=== PATIENT | female | born 1965 | race Caucasian/White ===

== ENCOUNTER → 2017-03-15 | Outpatient (CLI) | payer BC, OTHER ==
[~2017-03-15] VITALS: Ht 27.9 cm; Wt 52.2 kg
[~2017-03-15] MED LIST: AMBIEN 5 MG TABL5 M1 PO; CALCIUM 500 +1 EAC5 PO; DICLOFENAC SODI75 MG PO; GRALISE600 MG PO; LISINOPRIL10 MG PO; OXYCODONE HCL 55 MG PO; VITAMIN D3400 UNIT PO; [UNRECOGNIZED DRUG - OTHER] PO
--- NOTE | ~2017-03-15 | HPC ---
[facility] [address] [place] [address] PAIN MANAGEMENT CONSULTATION Name: DEBRA TINOCO Room #: REG [facility].#: [id number] Admission: 03/15/17 Attend Phys: Minor Turk DO Discharge: Date of : 67 Report #: [id number] THIS REPORT FOR: //name// CC: Duc Ward DATE OF SERVICE: 03/15/2017 REFERRING PHYSICIAN: Duc Barbosa MD CHIEF COMPLAINT: Neck pain, left upper extremity pain and paresthesias. HISTORY OF PRESENT ILLNESS: As you know, the patient is a 51-year-old female with longstanding history of neck pain, left upper extremity pain, which began in May 2016. She denies injury or trauma that may have led to symptoms. She has undergone Botox injections every 3 months for almost 9 years addressing symptoms of neck discomfort. She recently underwent a bursa injection in the left shoulder, which provided no improvement in symptoms. She also has had an intraarticular shoulder injection, which she does report some improvement in symptoms. She has completed physical therapy, but noted no significant pain improvement with this process. She returned to see her orthopedic surgeon who then referred the patient to our clinic to trial cervical epidural injections to address potential cervical radicular symptoms. She indicates pain is continuous, describes the pain as cramping, aching, gnawing, sharp and stabbing, places current pain score 3/10, daily average of 4/10, worst pain has been is 7/10. The patient has been referred to our service to trial cervical epidural injection and determine if her symptoms might be amenable to such procedures. PAST MEDICAL HISTORY: 1. Hypertension. 2. History of basal cell carcinoma. 3. Degenerative joint disease. 4. Osteoarthritis. 5. Chronic insomnia. PAST SURGICAL HISTORY: 1. Bilateral carpal tunnel release in 2014. 2. Bilateral breast implants in 1997. SOCIAL HISTORY: The patient denies tobacco, IV or illicit drug use, admits to 2 alcohol beverages per week. 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 She is reporting she is on partial disability due to several years of neck pain. She is unaccompanied at today's visit. REVIEW OF SYSTEMS: Positive for fatigue and weakness, wearing corrective [facility] [address] [place] [address] PAIN MANAGEMENT CONSULTATION Name: DEBRA TINOCO [facility] [id number] Admission: 03/15/17 Attend Phys: Minor Turk DO Discharge: Date of : 67 Report #: [id number] eyewear, irregular menses, painful menses, insomnia, neck pain that is chronic in nature, left upper extremity pain with paresthesias. All other review of systems negative per 12-point review of systems other than those listed in history of present illness. PAIN IMPACT SCORE: 26/70 indicating [id number]-nt-[id number] interference of daily activities secondary to pain. ALLERGIES: SULFA, PENICILLIN, BACITRACIN, POLYMYXIN, and VICRYL SUTURES. CURRENT MEDICATIONS: Lisinopril 10 mg once a day, Gralise 600 mg once a day, oxycodone 5 mg twice a day, zolpidem 10 mg 3 times a week, and diclofenac 75 mg twice a day. IMAGING: MRI cervical spine obtained on 10/13/2016, shows C2-C3 with no significant disk bulge or protrusions identified. Mild left neural foraminal narrowing due to uncovertebral and facet arthrosis. No significant central canal neural foraminal stenosis. C3-C4, minimal posterior disk bulge, no significant central canal neural foraminal stenosis. There is mild neural foraminal stenosis on the left due to uncovertebral facet arthrosis. C4-C5, no significant disk bulge or protrusion identified. No significant central canal neural foraminal stenosis. C5-C6, small broad based posterior disk osteophyte complex, severe disk desiccation, tnmvnyaw-[id number] right and mild left neural foraminal stenosis due to uncovertebral hypertrophy and facet arthrosis. C6-C7, minimal posterior disk bulge, no significant central canal stenosis, moderate right, [id number]-[id number] left neural foraminal stenosis. PHYSICAL EXAMINATION: VITAL SIGNS: Blood pressure 145/78, pulse 83, respiratory rate 14 and unlabored, the patient is 100% on room air, height 4 feet 11 inches tall, weight 115 pounds, and BMI calculated 23.2. GENERAL: Well-developed, well-nourished, well-hydrated 51-year-old female, appearing stated age, placing current pain score at 3/10. HEENT: Normocephalic, atraumatic. Pupils are equal, round, and reactive to light. Extraocular muscles are intact. Sclerae nonicteric without injection. NEUROLOGIC: Cranial nerves 2-12 are grossly intact. Speech is fluent. The patient deemed a fair historian. LUNGS: Clear. No wheezing, rhonchi, or rales. CARDIOVASCULAR: Regular. No appreciable gallop or rub. ABDOMEN: Soft, nontender, nondistended, normoactive bowel sounds. EXTREMITIES: Show no clubbing, no cyanosis, and no edema. MUSCULOSKELETAL: Upper extremity strength appears equal and symmetrical 5/5, intact to light touch from C5 through T1 dermatomes. Spurling's test positive right, negative left. Muscle bulk and tone equal and symmetrical in upper extremities. Cervical provocation testing including extension, rotation, lateral flexion all intensify axial cervical spine pain. [facility] [address] [place] [address] PAIN MANAGEMENT CONSULTATION Name: ALEJANDRINADEBRA Keesha Room #: REG [facility].#: [id number] Admission: 03/15/17 Attend Phys: Minor Turk DO Discharge: Date of : 67 Report #: [id number] ASSESSMENT: 1. Cervical radiculopathy. 2. Displacement of a cervical intervertebral disk with radiculopathy. 3. Cervical spondylosis with radicular symptoms. PLAN: 1. The patient has been referred to our service by our orthopedic surgery for evaluation for suspected cervical radiculopathy. The patient has undergone bursal injections in the shoulder as well as an intra-articular shoulder injection without improvement in symptoms. Due to lack of improvement, she was then sent for imaging of the cervical spine. It was determined the patient's symptoms might be related to cervical radiculopathy, she was subsequently referred to our clinic to trial a cervical epidural injection. Upon evaluation today, it does appear that the symptoms that the patient is currently experiencing do follow a mild dermatomal distribution, but certainly does correlate to more of a myotomal distribution. We have discussed with the patient treatment options for cervical radicular symptoms including the reason why the patient was sent today for cervical epidural injection. We discussed physical therapy, stretching exercises and traction techniques. This could be an effective way of treating her symptoms. We discussed neuropathic pain medications specifically in the form of gabapentin. We discussed the requested cervical epidural injections and surgical options. After reviewing the risks and benefits of all the proposed treatment options, the patient chose to begin with a cervical epidural injection under fluoroscopic guidance. The patient was advised the risks and benefits of a cervical epidural injection. These risks include, but are not necessarily limited to bleeding, bruising, infection, worsening of pain, no relief of pain, also risk of temporary or permanent muscle weakness, temporary or permanent nerve damage, possible paralysis and . The patient states understood and wished to proceed. 2. No medication changes were made at today's visit. The patient will continue current medical therapy as previously prescribed. 3. We will see the patient back in followup visit in approximately 31 days. At that time, we will review the efficacy of today's initial epidural injection and determine if a next in the series of epidural injections might be warranted. 4. We wish to thank the referring team for the opportunity to see this patient in consultation. We will keep you apprised of her response to treatment as we address suspected cervical radiculopathy. Again, we wish to thank you for the opportunity to participate in her care. PROCEDURE NOTE DESCRIPTION OF PROCEDURE: C7-T1 cervical epidural steroid injection under [address] [address] PAIN MANAGEMENT CONSULTATION Name: DEBRA TINOCO Room #: REG [facility] Zaidi#: [id number] Admission: 03/15/17 Attend Phys: Minor Truk DO Discharge: Date of : 67 Report #: [id number] fluoroscopic guidance. This is the first procedure of the first series that the patient is undergoing. After obtaining written consent, the patient was taken back to the fluoroscopy suite and placed in a prone position with separate pillows under chest and forehead to decrease cervical lordosis. The skin overlying the cervical area was prepped and draped in an aseptic fashion. The C7-T1 vertebral interspace was identified by AP fluoroscopy. The skin and subcutaneous tissue overlying the target site of injection was anesthetized using 3 ml of 1% lidocaine. A 20-gauge 3-1/2-inch Tuohy needle was advanced under fluoroscopic guidance toward the epidural space using a midline approach. The epidural space was identified using a loss of resistance to air technique. After negative aspiration for heme or cerebrospinal fluid, a total of 1 mL of Omnipaque was injected. A cervical epidurogram was confirmed using AP and oblique fluoroscopy. After negative aspiration for heme or cerebrospinal fluid, 5 mL of a solution containing 2 mL 40 mg per mL, 80 mg total triamcinolone, 3 mL lidocaine 1% was injected in increments. Contrast spread was noted from posterior epidural space. The needle was then retracted approximately correction and the needle track was flushed with 1 ml of 1% lidocaine. There were no apparent new sensory deficits in the upper extremities present following the procedure. A sterile bandage was placed over the injection site. The heart rate, pulse oximetry, and blood pressure were continuously monitored after the procedure. There were no apparent complications. The patient tolerated the procedure well and was carefully escorted in the recovery room in stable condition. After meeting discharge criteria, the patient was discharged home. By: [id number] [id number] Minor Turk DO /zainab
[2017-03-15 13:11] VITALS: BP 145/78
== END ==
LOC: PAIN 07:20
DX: M50.10 Cervical disc disorder with radiculopathy, unspecified cervical region (principal); Z88.0 Allergy status to penicillin; Z88.8 Allergy status to other drugs, medicaments and biological substances; I10 Essential (primary) hypertension; M19.90 Unspecified osteoarthritis, unspecified site; G47.00 Insomnia, unspecified; Z85.9 Personal history of malignant neoplasm, unspecified

== ENCOUNTER → 2017-04-06 | Outpatient (CLI) | payer BC, OTHER ==
[~2017-04-06] VITALS: Ht 149.9 cm; Wt 51.3 kg
[~2017-04-06] MED LIST changes: +ROBAXIN 750 MG750 M1 PO
--- NOTE | ~2017-04-06 | HPC ---
[facility] [address] [place] [address] PAIN MANAGEMENT CONSULTATION Name: ALEJANDRINADEBRA K [facility] #: [facility] [id number] Admission: 04/06/17 Attend Phys: Minor Turk DO Discharge: Date of : 67 Report #: [id number] THIS REPORT FOR: //name// CC: Duc Ward DATE OF SERVICE: 04/06/2017 REFERRING PHYSICIAN: Duc Barbosa M.D. CHIEF COMPLAINT: Neck pain, left upper extremity pain and paresthesias. HISTORY OF PRESENT ILLNESS: As you know, the patient is a 51-year-old female who returns today in followup visit with 100% resolution of her left arm pain, but continues to experience just left neck pain. She places pain score at around 0-2/10. Indicates pain is constant, cramping, sharp, stabbing and gnawing, exacerbated with sitting, standing and moving, improves with rest and lying down as well as previous epidural injection. She returns today in followup visit with what appears to be myofascial symptoms secondary to myotomal distribution of cervical radiculopathy. The patient had a return visit today to discuss treatment options. ALLERGIES: SULFA, PENICILLIN, BACITRACIN, POLYMYXIN, VICRYL SUTURES. SOCIAL HISTORY: The patient denies tobacco, IV or illicit drug use. Admits to 2 alcohol beverages per week. She is currently employed as a dental hygienist, working, not receiving workmen's compensation, unaccompanied today. IMAGING: No new imaging available. PHYSICAL EXAMINATION: VITAL SIGNS: Blood pressure 136/64, pulse 78, respiratory rate 14, unlabored. The patient is 100% on room air. Height 4 feet 11 inches tall, weight 113 pounds, BMI calculated 22.8. GENERAL: Well developed, well nourished, well hydrated 51-year-old female appearing her stated age. Pain is rated no greater than 2/10. HEENT: Normocephalic, atraumatic. Pupils equal, round, reactive to light. Extraocular muscles are intact. Sclerae nonicteric without injection. NEUROLOGIC: Cranial nerves 2-12 grossly intact. Speech is fluent. LUNGS: Clear, no wheeze, rhonchi or rales. CARDIOVASCULAR: Regular. No appreciable gallop or rub. ABDOMEN: Soft, nontender, nondistended. EXTREMITIES: Show no clubbing, no cyanosis, no edema. MUSCULOSKELETAL: Upper extremity strength appears equal and symmetrical 5/5, intact to light touch from C5-T1 dermatomes. Spurling's test is positive on the [address] [address] PAIN MANAGEMENT CONSULTATION Name: DEBRA TINOCO Room #: REG [facility] MaydaTres#: [id number] Admission: 04/06/17 Attend Phys: Minor Turk DO Discharge: Date of : 67 Report #: [id number]. Cervical provocation testing causes increased pain on the left when compared to the right. ASSESSMENT: 1. Symptomatic cervical radiculopathy. 2. Cervical spondylosis with radiculopathy. 3. Displacement of cervical intervertebral disk with radiculopathy. 4. Chronic intractable pain. PLAN: 1. The patient returns today in followup visit with 100% improvement in her left upper extremity pain from the epidural injection provided at last visit. She is extremely pleased with response to this treatment. She continues to experience muscle spasming in the cervical region just on the left side. The patient has had this muscle spasming for years and has undergone multiple different types of treatment including Botox injections. I believe her symptoms are more related to cervical myotomal distribution versus cervical dermatomal distribution. We discussed with the patient the possibility of repeating a cervical epidural injection and this would be certainly an option in her case. Given the fact that she is in now only experiencing 2/10 pain, I would recommend a more conservative approach, but we will have this second cervical epidural available if the patient wishes to undergo the procedure. 2. We will start the patient on a consistent muscle relaxant in the form of Robaxin 750 mg dose 1 tab p.o. t.i.d. p.r.n. muscle spasms. I have advised the patient to watch for side effects of somnolence, decreased mental acuity, disorientation, confusion with its use. If she notes any side effects, discontinue immediately. The patient is advised not to drive or operate heavy equipment while on this therapy. If the patient is noticing benefit, but side effects that are too intolerable, she will then use half a dose 3 times a day if needed. 3. I am pleased to see the patient has done well with previous epidural injection, we will be available to see the patient back in followup visit for a possible second in series of epidural injections if needed to address cervical myotomal pain. I am pleased to see she has done well and will be available to see her back and hopefully the Robaxin provided will benefit the patient further and she will be doing well from a pain standpoint. <ELECTRONICALLY SIGNED> By: Minor Turk DO 04/13/17 0807 [id number] [id number] Minor Turk DO /nt
[2017-04-06 10:46] VITALS: BP 136/64
== END | disposition home or self-care (01) ==
LOC: PAIN 07:25
DX: M50.10 Cervical disc disorder with radiculopathy, unspecified cervical region (principal); G89.29 Other chronic pain; Z88.0 Allergy status to penicillin; Z88.8 Allergy status to other drugs, medicaments and biological substances

== ENCOUNTER → 2017-07-20 | Outpatient (CLI) | payer BC, OTHER ==
[~2017-07-20] VITALS: Ht 149.9 cm; Wt 52.1 kg
[~2017-07-20] MED LIST changes: +ALEVE220 MG PO; +ALORA1 EAC1; +DOXYCYCLINE 10100 MG PO; +KLONOPIN0.5 MG PO; +LYRICA 75 MG CA75 MG PO; +LYRICA150 MG PO; +LYRICA200 MG PO; +LYRICA225 MG PO; +PROGESTERONE100 MG PO; +ROXICODONE5 M2 PO; +TRAMADOL 50 MG50 MG PO
--- NOTE | ~2017-07-20 | HPC ---
[facility] [address] [place] [address] PAIN MANAGEMENT CONSULTATION Name: ALEJANDRINADEBRA Keesha Room #: [facility] [id number] Admission: 07/20/17 Attend Phys: Minor Turk DO Discharge: Date of : 67 Report #: [id number] THIS REPORT FOR: //name// CC: Duc Ward DATE OF SERVICE: 07/20/2017 REFERRING PHYSICIAN: Duc Barbosa M.D. CHIEF COMPLAINT: Neck pain, left upper extremity pain and paresthesias. HISTORY OF PRESENT ILLNESS: As you know, the patient is a 51-year-old female who returns today in followup visit to discuss medication adjustments and treatment options for ongoing left upper extremity pain and chronic neck pain. The patient is undergoing Botox injections in the neck, not noticing much in the way of improvement appears to be myofascial in origin. The neck issues have been addressed with epidural injections, which have improved her left upper extremity pain but has left her own with residual neck pain, which was unresolved from the injection and/or with the Botox injections. We started the patient on Lyrica in hopes of improving pain further. She returns to make some further adjustments in her therapy. Today, pain is rated at a level of 4/10, states the pain is chronic cramping, aching, sharp, stabbing, gnawing, exacerbated with sitting, standing and not moving for a long period of time, improves with rest and medications. She returns today to make adjustments in therapy. ALLERGIES: PENICILLIN, SULFA, BACTRIM and POLYMYXIN. CURRENT MEDICATIONS: Naproxen sodium 220 mg 3 times a day, methocarbamol 750 mg 3 times a day, calcium carbonate 1 tab per day, cholecalciferol 4000 units per day, zolpidem 5 mg p.o. at bedtime, oxycodone 5 mg 1/2 tab q. 12 hours p.r.n. pain, lisinopril 10 mg per day and Lyrica 150 mg dose at night. SOCIAL HISTORY: The patient denies tobacco, alcohol, IV or illicit drug use. She is working, not receiving workmen's compensation, unaccompanied today. IMAGING DATA: No new imaging available. PHYSICAL EXAMINATION: VITAL SIGNS: Blood pressure 126/75, pulse 86 and respiratory rate 16 and unlabored. The patient is 100% on room air. Height 4 feet 11 inches tall, weight 114.8 pounds and BMI calculated 23.2. GENERAL: Well-developed, well-nourished, well-hydrated 51-year-old female appearing her stated age. Current pain score is rated at 4/10. [place] [address] PAIN MANAGEMENT CONSULTATION Name: DEBRA TINOCO [facility] #: [facility] [id number] Admission: 07/20/17 Attend Phys: Minor Turk DO Discharge: Date of : 67 Report #: [id number] HEENT: Normocephalic and atraumatic. Pupils equal, round and reactive to light. Extraocular muscles are intact. Sclerae nonicteric, without injection. Speech fluent. EXTREMITIES: Show no clubbing, no cyanosis and no edema. MUSCULOSKELETAL: Upper extremity strength equal and symmetrical 5/5, muscle bulk and tone equal and symmetrical. Spurling's test mildly positive left, negative right. Intact to light touch from C5 to T1 dermatomes. Deep tendon reflexes are symmetrical at biceps, brachialis and triceps. ASSESSMENT: 1. Cervical radiculopathy. 2. Cervical spondylosis with radiculopathy. 3. Displacement of cervical intervertebral disk with radiculopathy. 4. Myofascial pain. 5. Muscle spasms of the cervical region. 6. Chronic intractable pain. PLAN: 1. The patient returns today in followup visit indicating good improvement in the left upper extremity pain with the cervical epidural injection. Unfortunately, this did not provide much in the way of improving her neck pain. I believe her neck pain is more related to myofascial issues, specifically about issues of related to her positioning at work. I think this is also exacerbated by anxiety, leading to chronically contracted musculature of the cervical region. She has been undergoing Botox injections for a very long period of time with minimal efficacy, though she does note improvement, which would indicate more of a myofascial in process. I believe the underlying problem is related more to anxiety related issues, then it is just strictly contracted musculature certainly not due to her cervical radicular symptoms as the symptoms she is experiencing are left-sided from a cervical radicular standpoint but is experiencing bilateral head pain and actually the right greater than the left. We have discussed treatment options following adjustments will be made in therapy. 2. The patient will increase her Lyrica from 150 mg at night to 150 mg at night and 50 mg a day. We have given the patient a trial of 50 mg tablets to take in the morning hours. She is to watch for side effects of somnolence, decreased mental acuity, disorientation and confusion. If she notes side effects in the morning hours, she should take the total of 200 at night in hopes of improving remaining neuropathic pain. She is having no side effects with the 150 mg tablet and escalation would be warranted. She was given the Lyrica prescription of 150 mg dose 1 tab p.o. at bedtime, #30 with two refills. She was given a month's worth of 50 mg Lyrica samples to try. If we need to make an adjustment in her therapy, she is to contact our clinic once she reaches the 150 mg in the evening and 50 mg morning dosing. 3. The patient was provided prescription of oxycodone 5 mg dose. She is to take one half tab up to 2-3 times a day. She was given #60 tablets, no refills. [address] [address] PAIN MANAGEMENT CONSULTATION Name: DEBRA TINOCO Room #: REG [facility].#: [id number] Admission: 07/20/17 Attend Phys: Minor Turk DO Discharge: Date of : 67 Report #: [id number] She was advised to utilize medication only when pain is intolerable, not to rely on the medication prophylactically. I did advise the patient is not an appropriate long-term therapy for her ongoing issues. 4. The patient will discontinue methocarbamol and any other muscle relaxants as well as her Ambien. She will trial clonazepam 0.5 mg 1 tab p.o. at bedtime. I do believe that a significant portion of the patient's chronic neck pain is due to anxiety related issues. This in conjunction with positioning at work exacerbates symptoms. We recommend the patient to try the clonazepam over the next month. If this is successful, I would recommend that she look into further treatment through her PCP. We will trial the clonazepam. She will contact our clinic with any questions or concerns. 5. We will see the patient back in followup visit in 3 months. She will contact our clinic in regards to the efficacy of the clonazepam and the Lyrica. <ELECTRONICALLY SIGNED> By: Minor Turk DO 07/26/17 0908 1211 Minor Turk DO /nt
[2017-07-20 10:15] VITALS: BP 126/75
== END ==
LOC: PAIN 07:06
DX: M47.22 Other spondylosis with radiculopathy, cervical region (principal); M79.1 Myalgia; R25.2 Cramp and spasm; G89.29 Other chronic pain

== ENCOUNTER → 2017-10-04 | Outpatient (CLI) | payer BC, OTHER ==
[~2017-10-04] VITALS: Ht 149.9 cm; Wt 52.2 kg
[~2017-10-04] MED LIST changes: -LYRICA225 MG PO
--- NOTE | ~2017-10-04 | HPC ---
[facility] [address] [place] [address] PAIN MANAGEMENT CONSULTATION Name: DEBRA TINOCO Room #: REG [facility].#: [id number] Admission: 10/04/17 Attend Phys: Minor Turk DO Discharge: Date of : 67 Report #: [id number] THIS REPORT FOR: //name// CC: Duc Normantter DATE OF SERVICE: 10/04/2017 REFERRING PHYSICIAN: Duc Barbosa MD CHIEF COMPLAINT: Neck pain, left upper extremity pain. HISTORY OF PRESENT ILLNESS: As you know, the patient is a 51-year-old female, who returns today in followup visit, indicating good efficacy with medication management. She is noticing pain control with current medical therapy. She is placing pain score no greater than 3-4/10. States her pain is constant, aching, cramping, sharp and stabbing, exacerbated with sitting, standing and doing activities at work. Rest, lying down and changing position tends to improve pain as has medication management in the form of Lyrica and Botox injections. She returns today in followup visit for adjustments in her Lyrica therapy and to continue low-dose opioid medications for the next couple of months. Once she is able to continue with the Botox injections, she will be weaning off those medications. She returns for adjustments in therapy. ALLERGIES: PENICILLIN, SULFA, BACTRIM, POLYMYXIN. CURRENT MEDICATIONS: Naproxen sodium 220 mg 3 times a day, methocarbamol 750 mg 3 times a day, calcium carbonate 1 tab per day, cholecalciferol 4000 units once a day, zolpidem 5 mg p.o. at bedtime, oxycodone 5 mg 1/2 tab q.12 hours p.r.n., lisinopril 10 mg per day, Lyrica 200 mg p.o. at bedtime. SOCIAL HISTORY: The patient denies tobacco, alcohol, IV or illicit drug use. She is working, not receiving workmen's compensation. She is unaccompanied today. IMAGING: No new imaging available. PHYSICAL EXAMINATION: VITAL SIGNS: Blood pressure 108/76, pulse 90, respiratory rate 14 and unlabored. The patient is 96% on room air. Height 4 feet 11 inches tall, weight 115 pounds, BMI calculated 23.2. GENERAL: Well-developed, well-nourished, well-hydrated 51-year-old female. She appears stated age, pain is rated at no greater than 3-4/10. HEENT: Normocephalic, atraumatic. Pupils equal, round, reactive to light. EXTREMITIES: Show no clubbing, no cyanosis, no edema. [address] [address] PAIN MANAGEMENT CONSULTATION Name: DEBRA TINOCO Room #: REG [facility].#: [id number] Admission: 10/04/17 Attend Phys: Minor Turk DO Discharge: Date of : 67 Report #: [id number] MUSCULOSKELETAL: Upper extremity strength is symmetrical again today 5/5, muscle bulk and tone equal and symmetrical. She does have mild torticollis type symptoms involving the left neck area. There is palpatory tenderness on the left neck, negative right. Spurling's test is mildly positive left. ASSESSMENT: 1. Cervical radiculopathy. 2. Cervical spondylosis with radiculopathy. 3. Displacement of cervical intervertebral disk with radicular symptoms. 4. Myofascial pain. 5. Muscle spasms of the cervical region. 6. Chronic intractable pain. PLAN: 1. The patient returns today in followup visit, indicating good efficacy with combination of Lyrica and oxycodone. She is taking very little oxycodone and does not use more than about 60 tablets in a 3-month period. The combination of medications in conjunction with physical activity, stretching exercises and Botox injections has been effective. Recommend continuation of this current therapy. She does have next evaluation with Dr. Barbosa in approximately 2 months for further exploration of the shoulder and we encouraged the patient to keep this appointment. 2. The patient was provided prescription of oxycodone 5 mg dose, one-half tab every 12 hours p.r.n. pain. She was given #60 tablets, which is 3 months' worth of medication. 3. The patient was provided a prescription of Lyrica 200 mg tablets, 1 tab p.o. every day, #30 with 5 refills, 6 months' worth of medication. 4. I have encouraged the patient to continue with stretching exercises and traction techniques as well as continuing her typical Botox injections. I have also offered the idea of undergoing acupuncture therapy. She will consider this option, but we will continue her baseline treatment as indicated above. 5. We will see the patient back in followup visit in 3 months for medication therapy. <ELECTRONICALLY SIGNED> By: Minor Turk DO 10/18/17 0935 [id number] Minor Turk DO /nt
[2017-10-04 13:34] VITALS: BP 108/76
== END ==
LOC: PAIN 07:06
DX: M47.22 Other spondylosis with radiculopathy, cervical region (principal); G89.4 Chronic pain syndrome; M79.1 Myalgia; Z79.899 Other long term (current) drug therapy

== ENCOUNTER → 2018-04-12 | Outpatient (CLI) | payer BC, OTHER ==
[~2018-04-12] VITALS: Ht 149.9 cm; Wt 51.7 kg
[~2018-04-12] MED LIST changes: +LYRICA225 MG PO
--- NOTE | ~2018-04-12 | HPC ---
[facility] [place] [address] PAIN MANAGEMENT CONSULTATION Name: ALEJANDRINADEBRA SCHILLING Keesha Room #: REG [facility].#: [id number] Admission: 04/12/18 Attend Phys: Minor Turk DO Discharge: Date of : 67 Report #: [id number] THIS REPORT FOR: //name// CC: Duc Ward DATE OF SERVICE: 04/12/2018 REFERRING PHYSICIAN: Duc Barbosa M.D. CHIEF COMPLAINT: Neck pain and left upper extremity pain. HISTORY OF PRESENT ILLNESS: As you know, the patient is a 52-year-old female returning in followup visit requesting adjustments in medication therapy. As you are aware, we have had the patient undergo cervical epidural injections with benefit as well as medication management with further increase in pain control. The patient indicates pain level of 3/10 today. She returns requesting adjustments in medication as she does not feel her pain is controlled well enough. She returns to make adjustments if at all possible. She does not wish at this time to undergo injection therapy. ALLERGIES: PENICILLIN, SULFA, BACITRACIN and POLYMYXIN. CURRENT MEDICATIONS: Lisinopril 10 mg per day, zolpidem 5 mg p.o. at bedtime, tramadol 50 mg once a day, estradiol 0.05 mg patch, progesterone 100 mg once a day and pregabalin 200 mg once a day. SOCIAL HISTORY: The patient denies tobacco, alcohol or IV or illicit drug use. She is working, not receiving workmen's compensation, unaccompanied today. IMAGING DATA: There is no new imaging available. PHYSICAL EXAMINATION: VITAL SIGNS: Blood pressure 139/78, pulse is 89 and respiratory rate 16 and unlabored. The patient is 100% on room air. Height 4 feet 11 inches tall, weight 114 pounds and BMI calculated 23.0. GENERAL: Well-developed, well-nourished and well-hydrated 52-year-old female appearing her stated age, placing current pain score 3/10. HEENT: Normocephalic and atraumatic. Pupils equal, round and reactive to light. Extraocular muscles are intact. Sclerae are nonicteric without injection. NEUROLOGICAL: Cranial nerves 2 through 12 grossly intact. Speech is fluent. EXTREMITIES: Show no clubbing, no cyanosis and no edema. MUSCULOSKELETAL: Upper extremity strength is 5/5. Muscle bulk and tone equal and symmetrical. There is tenderness to palpation over the paraspinal [facility] [address] [place] [address] PAIN MANAGEMENT CONSULTATION Name: DEBRA TINOCO Room #: [facility]#: [id number] Admission: 04/12/18 Attend Phys: Minor Turk DO Discharge: Date of : 67 Report #: [id number] musculature of cervical spine and no spinous process tenderness. Spurling's test mildly positive, left. Cervical provocation testing is met with increasing pain with rotation to the left and lateral flexion to the left. ASSESSMENT: 1. Cervical radiculopathy. 2. Cervical spondylosis with radiculopathy. 3. Displacement of a cervical intervertebral disk with radiculopathy. 4. Myofascial pain. 5. Muscle spasms of the cervical region. 6. Chronic intractable pain. PLAN: 1. The patient returns today in followup visit requesting changes in medication therapy despite the fact she is only reporting pain score 3/10. The patient has expectations of complete resolution of pain and I have advised the patient this would not be possible. The fact that her job continues to exacerbate her symptoms due to positioning of her cervical spine draining her activities. It is impossible for us to alleviate entirely as she continues to participate in the activities that precipitate the problem. We have discussed this once again with the patient today. We will make adjustments in her medication therapy but have suggested that the patient make changes in ergonomic design of her work space. I have also advised the patient to try to position herself in different locations so that she is not always in the same position throughout the day. The patient states this is not possible due to the activities required by work. She needs to adjust these activities if at all possible or she will continue to experience chronic neck pain and left upper extremity symptoms due to the repetitive activity she has been at work. We did discuss with the patient today as her pain is fairly controlled when she is at home and not at work space. 2. I have recommended the possibility of increasing her Lyrica, she has a 200 mg dose currently. I have given her samples of 50 mg tablets of Lyrica to escalate to 250 mg over the next 7 days. If this does not improve her symptoms, then increase to 300 mg p.o. at bedtime and continue for another 7 days. If again this is not showing improvement and she is having no side effects such as somnolence, decreased mental acuity, disorientation, confusion, mental slowing or increasing depression, she could then increase to 350 mg and at this point, we are reaching the top level of this medication. She can continue the 350 mg dose if she finds efficacy. Once she reaches a level where her pain is well controlled, she is to contact our clinic and we will provide a prescription at that dosing level. 3. We have taken the liberty of writing for tramadol 50 mg dose 1 tab 3 times a day p.r.n. pain, #90 with no refills. The patient was advised to take this medication only when pain is intolerable. We are not to rely on this medication prophylactically. 4. The patient and I did discuss the possibility of continuing with Botox injections. Apparently, these are being done with some improvement in symptoms. [address] [address] PAIN MANAGEMENT CONSULTATION Name: DEBRA TINOCO Room #: REG [facility]#: [id number] Admission: 04/12/18 Attend Phys: Minor Turk DO Discharge: Date of : 67 Report #: [id number] I do believe that even the Botox injections will not be effective, if she continues to participate in activities that precipitated her issues. She needs to discuss this further with her neurologist providing these Botox injections. 5. We will see the patient back in followup visit on an as needed basis. She will contact our clinic once she has reached an efficacious level of Lyrica. We will provide her with a full prescription of the medication with refills at that more effective dose. Tramadol therapy was provided today with capability of having refills on an as needed basis. If she finds these 2 medications effective and she is doing well, we will be returning her care to the referring physician. <ELECTRONICALLY SIGNED> By: Minor Turk DO 04/19/18 1059 [id number] Minor Turk DO /nt
[2018-04-12 11:21] VITALS: BP 139/78
== END ==
LOC: PAIN 06:52
DX: M47.22 Other spondylosis with radiculopathy, cervical region (principal); M50.20 Other cervical disc displacement, unspecified cervical region; G89.4 Chronic pain syndrome; M62.838 Other muscle spasm; Z79.899 Other long term (current) drug therapy

== ENCOUNTER → 2018-09-27 | Outpatient (CLI) | payer BC, OTHER ==
[~2018-09-27] VITALS: Ht 149.9 cm; Wt 53.9 kg
[~2018-09-27] MED LIST changes: +LYRICA 50 MG50 MG PO; +LYRICA300 MG PO
[2018-09-27 11:14] VITALS: BP 117/61
--- NOTE | 2018-09-27 11:34 | NUR ---
Pain Clinic Assessment: 1. History of Osteoarthritis: NECK History of Rheumatoid Arthritis: Not Applicable 2. Height: 4 ft. 11 in. 149.9 cm. Weight: 118.8 lb. oz. 53.887 kg. Patient's BMI: 24.0 3. Vital Signs: BP: 117/61 Pulse: 84 Resp: 14 Temp: 02 Sat: 100 ECG Mon: 4. Pain Intensity: 5 5. Fall Risk: Dizziness: N Needs help standing or walking: N Fallen in the last 3 months: N Fall risk comments: 6. Patient on Blood Thinner: None 7. History of Hypertension: Y 8. Opioid Therapy greater than 6 weeks: N Opiate Contract Signed: 9. Risk Assessment Tool Provided: 1-L0W 10. Functional Assessment Tool: 11. Recreational Drug Use: Never Drug Type: Tobacco Use: Never Smoker Tobacco Type: Amount or Packs/day: How Many Years: Alcohol Use: Yes Frequency: Quant:
--- NOTE | 2018-09-28 07:14 | HPC ---
[facility] [address] [place] [address] PAIN MANAGEMENT CONSULTATION Name: DEBRA TINOCO [id number] Admission: 09/27/18 ������������������ Attend Phys: Rebeca Smart Discharge: ������������������ Date of : 67 Report #: [id number] THIS REPORT FOR: //name// [facility] DATE OF SERVICE: 09/27/2018 CHIEF COMPLAINT: Neck pain and left upper extremity pain. HISTORY OF PRESENT ILLNESS: This is a very pleasant 52-year-old female who returns to the pain clinic for medication management that she uses to treat her undergoing cervical radiculopathy and muscle spasms in her neck. She tells me that she received her Botox injections about 3 weeks ago. She usually gets relief for about 2 months of the 3-month period between her Botox injections that she tells me that her pain is more under control. Otherwise, it does flare back up again today. Her pain score is 5/10. She said most of her pain is very intense in the morning. When she awakens in the morning, she does take her pain pills with some coffee before getting out of bed and then rest a while before she gets up. She tells me that her pain is a constant, sharp, cramping pain in her neck and shoulder area. She does find the medications helpful as well as her Botox, lying down and resting. ALLERGIES: PENICILLIN, SULFA, POLYSPORIN. MEDICATIONS: Current list of medications, Lyrica 350 mg at bedtime, tramadol up to 3 times a day, progesterone daily, estradiol patch weekly, Ambien at bedtime p.r.n. and lisinopril 10 mg at bedtime. PQRS: 1. She does have osteoarthritis in her neck. Denies any rheumatoid arthritis. 2. Height is 4 feet 11 inches, weight is 118, BMI is 24. 3. Vital signs, blood pressure 117/61, pulse is 84, respirations 14, oxygen sat 100%. 4. Pain score is 5/10. 5. Fall risk. Denies dizziness. Does not need help walking or standing. Has not fallen in the last 3 months. 6. The patient is not on any blood thinners, but does take medicine for hypertension. 7. Opioid therapy is greater than 6 weeks. Risk assessment tool is low. Her functional assessment is 39/70. 8. Recreational drug use, the patient denies. She is not a smoker and occasionally drinks alcohol. We did check the prescription monitoring system. The patient is filling appropriately the medications and due for them today. [place] [address] PAIN MANAGEMENT CONSULTATION Name: ALEJANDRINADEBRA SCHILLING Keesha Room #: REG [facility] Dejuan#: [id number] Admission: 09/27/18 ������������������ Attend Phys: Rebeca Smart Discharge: ������������������ Date of : 67 Report #: [id number] screen on the chart, but we will check one for her next appointment. PHYSICAL EXAMINATION: GENERAL: This is a well-developed, well-nourished, well-hydrated 52-year-old female who appears her stated age. Placing her pain score today at 5/5. HEENT: Normocephalic, atraumatic. Pupils equal, round and reactive to light. Extraocular eye muscles are intact. MUSCULOSKELETAL: Upper extremity strength judged to be 5/5. Muscle bulk and tone are equal and symmetrical. She has tenderness over the musculature in her cervical spine and pain with rotation and flexion of her neck. ASSESSMENT: 1. Cervical radiculopathy. 2. Cervical spondylosis with radiculopathy. 3. Displacement of cervical intervertebral disk with radiculopathy. 4. Myofascial pain. 5. Muscle spasms of the cervical region. 6. Chronic intractable pain. We reviewed the fact that opiate medications are being used to provide analgesia adequate to support activities of daily living, not attempting to achieve a specific pain score on the 0-10 Visual Analog Scale. The current opiate medications are providing sufficient analgesia to allow the patient to participate in activities of daily living. The patient is not exhibiting any aberrant behavior suggestive of drug diversion. The patient is not having any adverse reactions to medications. The patient is not suffering from daytime somnolence or mental acuity changes. The patient is managing opiate-induced constipation with appropriate emyr-abg-ywiuigg agents and dietary considerations. The patient was counseled on concern for caution with operating a motor vehicle while using opiate medications. A physical exam was performed and the patient's functional status was evaluated. All patients with back pain were advised against the bed rest greater than 4 days and were advised to return to normal activities. Pain score assessment was noted and the treatment plan was reviewed with the patient. All current medications, both prescribed and OTC were reviewed and reconciled on the electronic medical record. Tobacco screening was accomplished and smoking cessation was advised when indicated. BMI was noted and diet/exercise modification was recommended for all patients following outside normal parameters. I reviewed with the patient today their responsibilities to safeguard prescription medications, reviewed their responsibility to utilize medications only as prescribed by the physician. They are to seek and receive pain medications only from 1 physician group ([facility]). They are to use 1 pharmacy and keep the clinic informed if they change pharmacies. Their [address] [address] PAIN MANAGEMENT CONSULTATION Name: DEBRA TINOCO Room #: REG [facility]#: [id number] Admission: 09/27/18 ������������������ Attend Phys: Rebeca Smart Discharge: ������������������ Date of : 67 Report #: [id number] responsibilities include making followup visits in a timely fashion and to avoid abrupt discontinuation of medication usage. Their responsibilities further include bringing their medications (bottles from the pharmacy with residual pills) to the visit for possible confirmation of pill counts and the patient understands it is their responsibility to submit to random drug screens to ensure both that the medications prescribed are present, and that no other controlled substances are present. All prescriptions provided today were generated electronically. PLAN: We discussed treatment options with the patient today. The patient tells me that the Lyrica has been helpful in reducing her neck and arm pain as well as the tramadol, she finds that the 350 mg has been beneficial, but does have significant pain upon arising in the morning. I did question the patient if she does get up during the night to use the restroom or awakens during the night, if she ever takes a pain pill at that time or that she always waits until her awakening for the day, the patient tells me that she has not tried to take it in the night when she does wake up, she only waits to take her pain medicine in the morning, then she has to rest in bed for a while before it starts working. We discussed changing her Lyrica dose, so she takes 300 at bedtime and then 50 upon awakening in the morning or if she wakes in the middle of the night to take it at that time and take a tramadol if she wakes during the night to see if this is beneficial in helping her morning time pain decrease. The patient is willing to try this and verbalizes understanding that she will start altering her times of medications. 2. Prescriptions given today for Lyrica 300 mg #90 with 1 additional refill and Lyrica 50 #90 with 1 additional refill, tramadol 50 mg #90 with 2 refills was also given. 3. I did talk to the patient briefly about an alternative of tramadol ER, an extended release tramadol that possibly she could take at bedtime to see if that helps throughout the morning hours. I told her I would discuss this with Dr. Minor Turk at the next appointment with her if the change in the above has not been helpful. No changes to the tramadol dose currently. 4. The patient is seen with Dr. Minor Turk who coordinated care. ��������������������������������������������� <ELECTRONICALLY SIGNED> ���������������������������������������� By: Rebeca Smart ��������������������������������������������� 09/28/18 0714 [id number] Rebeca Smart /zainab
== END ==
LOC: PAIN 09-26 09:11
DX: M47.22 Other spondylosis with radiculopathy, cervical region (principal); M50.10 Cervical disc disorder with radiculopathy, unspecified cervical region; G89.4 Chronic pain syndrome; M79.18 Myalgia, other site; Z79.899 Other long term (current) drug therapy

== ENCOUNTER → 2019-01-31 | Outpatient (CLI) | payer BC, OTHER ==
[~2019-01-31] VITALS: Ht 149.9 cm; Wt 53.3 kg
[2019-01-31 11:12] VITALS: BP 146/76
--- NOTE | 2019-01-31 11:25 | NUR ---
Pain Clinic Assessment: 1. History of Osteoarthritis: NECK History of Rheumatoid Arthritis: Not Applicable 2. Height: 4 ft. 11 in. 149.9 cm. Weight: 117.6 lb. oz. 53.343 kg. Patient's BMI: 23.7 3. Vital Signs: BP: 146/76 Pulse: 68 Resp: 16 Temp: 02 Sat: 100 ECG Mon: 4. Pain Intensity: 5 5. Fall Risk: Dizziness: N Needs help standing or walking: N Fallen in the last 3 months: N Fall risk comments: 6. Patient on Blood Thinner: None 7. History of Hypertension: Y 8. Opioid Therapy greater than 6 weeks: N Opiate Contract Signed: 9. Risk Assessment Tool Provided: 1-L0W 10. Functional Assessment Tool: 11. Recreational Drug Use: Never Drug Type: Tobacco Use: Never Smoker Tobacco Type: Amount or Packs/day: How Many Years: Alcohol Use: Yes Frequency: Weekly Quant: 1-2
--- NOTE | 2019-02-01 16:02 | HPC ---
[facility] [address] [place] [address] PAIN MANAGEMENT CONSULTATION Name: ALEJANDRINADEBRA K [facility] [id number] Admission: 01/31/19 ������������������ Attend Phys: Rebeca Smart Discharge: ������������������ Date of : 67 Report #: [id number] THIS REPORT FOR: //name// CC: Rebeca Normantter DATE OF SERVICE: 01/31/2019 CHIEF COMPLAINT: Neck pain and jaw pain. HISTORY OF PRESENT ILLNESS: This is a pleasant 53-year-old female who returns to the Pain Clinic today for refill of her medications that she uses to help treat her ongoing cervical radiculopathy and muscle spasms in her neck and her ongoing jaw pain. The patient tells me that she has been having increased spasms in her jaw lately and her neck. She has increased her Botox in her temporal area as well as her temporomandibular joint and finds this has been slightly helpful as well as her medications. She also has gotten a new mouthguard and that did not seem to benefit her much, but she did switch to a previous mouthguard that she had had used in the past and is finding that helpful currently. The patient tells me her pain score is a 5/10 today, worse in the morning or as the day progresses. If she lies down and repositions herself or her medications, she finds this is very helpful. The patient is taking her tramadol during the day at work, finds this is very beneficial allowing her to work 2-1/2 days a week, which she has decreased slightly her hours due to her pain. She also takes her Lyrica 350 mg at bedtime. ALLERGIES: PENICILLIN, SULFA, BACTRIM. CURRENT LIST OF MEDICATIONS: Lisinopril 10 mg daily, Ambien 5 mg p.r.n., estradiol patch, progesterone 100 mg p.o. daily, Lyrica 350 mg daily and tramadol 50 mg t.i.d. p.r.n. PQRS: 1. She does have osteoarthritis in her neck. She denies any rheumatoid arthritis. 2. Height is 4 feet 11 inches, weight is 117, BMI is 23. 3. VITAL SIGNS: 146/76, pulse is 68, respirations 16, oxygen sat is 100. 4. Pain score is 5/10. 5. Denies dizziness, does not need help walking or standing, has not fallen in the last 3 months. 6. The patient is not on any blood thinners, but does take medicine for hypertension. 7. Opioid therapy is greater than 6 weeks. Risk assessment tool is low. Functional assessment is 39/70. [address] [address] PAIN MANAGEMENT CONSULTATION Name: DEBAR TINOCO Keesha Room #: REG [facility] Zaidi#: [id number] Admission: 01/31/19 ������������������ Attend Phys: Rebeca Smart Discharge: ������������������ Date of : 67 Report #: [id number] 8. Recreational drug use, she denies. She is not a smoker and does drink alcohol about 1-2 drinks a week. According to the prescription monitoring system, the patient is filling appropriately for her medications and is due to fill them today. PHYSICAL EXAMINATION: GENERAL: This is a well-developed, well-nourished, well-hydrated 53-year-old female who appears her stated age, placing her current pain score at 5/10. HEENT: Normocephalic, atraumatic. Extraocular eye muscles are intact. Mucous membranes are moist. She does complain of jaw pain bilateral today, tightness in her jaws. MUSCULOSKELETAL: Upper extremity strength is judged to be 5/5, muscle bulk and tone are symmetrical and equal. She has tenderness over her musculature in her cervical spine, pain with rotation of her neck in all planes. ASSESSMENT: 1. Cervical radiculopathy. 2. Cervical spondylosis with radiculopathy. 3. Displacement of cervical intervertebral disk with radiculopathy. 4. Myofascial pain. 5. Muscle spasms in the cervical region. 6. Chronic intractable pain. We reviewed the fact that opiate medications are being used to provide analgesia adequate to support activities of daily living, not attempting to achieve a specific pain score on the 0-10 Visual Analog Scale. The current opiate medications are providing sufficient analgesia to allow the patient to participate in activities of daily living. The patient is not exhibiting any aberrant behavior suggestive of drug diversion. The patient is not having any adverse reactions to medications. The patient is not suffering from daytime somnolence or mental acuity changes. The patient is managing opiate-induced constipation with appropriate bkch-amo-bfdnqzc agents and dietary considerations. The patient was counseled on concern for caution with operating a motor vehicle while using opiate medications. A physical exam was performed and the patient's functional status was evaluated. All patients with back pain were advised against the bed rest greater than 4 days and were advised to return to normal activities. Pain score assessment was noted and the treatment plan was reviewed with the patient. All current medications, both prescribed and OTC were reviewed and reconciled on the electronic medical record. Tobacco screening was accomplished and smoking cessation was advised when indicated. BMI was noted and diet/exercise modification was recommended for all patients following outside normal parameters. [address] [address] PAIN MANAGEMENT CONSULTATION Name: DEBRA TINOCO Room #: REG [facility]#: [id number] Admission: 01/31/19 ������������������ Attend Phys: Rebeca Smart Discharge: ������������������ Date of : 67 Report #: [id number] I reviewed with the patient today their responsibilities to safeguard prescription medications, reviewed their responsibility to utilize medications only as prescribed by the physician. They are to seek and receive pain medications only from 1 physician group ( [facility]). They are to use 1 pharmacy and keep the clinic informed if they change pharmacies. Their responsibilities include making followup visits in a timely fashion and to avoid abrupt discontinuation of medication usage. Their responsibilities further include bringing their medications (bottles from the pharmacy with residual pills) to the visit for possible confirmation of pill counts and the patient understands it is their responsibility to submit to random drug screens to ensure both that the medications prescribed are present, and that no other controlled substances are present. All prescriptions provided today were generated electronically. PLAN: 1. We discussed treatment options with the patient today. The patient finds that the tramadol is beneficial in helping her get through her workday. Scripts given for 50 mg t.i.d., #90, with 2 additional refills. 2. The patient was wondering if we were able to increase her Lyrica slightly. She is taking 350 mg at bedtime. This case was discussed with Dr. Minor Turk, who collaborated care and saw the patient as well. It was decided that the patient could try to titrate up to a total daily dose of 450 mg. I encouraged the patient to increase by 50-mg tablets for 1-week and then increase again if needed. We discussed lowest most effective dose and also splitting the dose throughout the day to see if that is more beneficial in helping control some of her pain throughout the day. The patient verbalizes understanding. We will call in most effective dose to the patient's pharmacy, if she does tolerate a higher dose. 3. Scripts given today, in the meantime, for Lyrica 300 mg, #90, with 1 additional refill and Lyrica 50 mg, #90, with 1 additional refill. 4. The patient will follow up in 6 months or earlier if needed for medications. ��������������������������������������������� <ELECTRONICALLY SIGNED> ���������������������������������������� By: Rebeca Smart ��������������������������������������������� 02/01/19 1602 [id number] [id number] Rebeca Smart /nt
== END ==
LOC: PAIN 06:54
DX: M47.22 Other spondylosis with radiculopathy, cervical region (principal); M50.10 Cervical disc disorder with radiculopathy, unspecified cervical region; M79.18 Myalgia, other site; G89.4 Chronic pain syndrome; Z79.899 Other long term (current) drug therapy; Z88.0 Allergy status to penicillin; Z88.2 Allergy status to sulfonamides; Z88.8 Allergy status to other drugs, medicaments and biological substances

== ENCOUNTER → 2019-05-01 | Outpatient (CLI) | payer BC, OTHER ==
[~2019-05-01] VITALS: Ht 149.9 cm; Wt 54.0 kg
[~2019-05-01] MED LIST changes: +botox
[2019-05-01 10:56] VITALS: BP 122/60
--- NOTE | 2019-05-01 11:09 | NUR ---
Pain Clinic Assessment: 1. History of Osteoarthritis: NECK History of Rheumatoid Arthritis: Not Applicable 2. Height: 4 ft. 11 in. 149.9 cm. Weight: 119.0 lb. oz. 53.978 kg. Patient's BMI: 24.0 3. Vital Signs: BP: 122/60 Pulse: 75 Resp: 14 Temp: 02 Sat: 100 ECG Mon: 4. Pain Intensity: 5 5. Fall Risk: Dizziness: N Needs help standing or walking: N Fallen in the last 3 months: N Fall risk comments: 6. Patient on Blood Thinner: None 7. History of Hypertension: Y 8. Opioid Therapy greater than 6 weeks: N Opiate Contract Signed: 9. Risk Assessment Tool Provided: 1-L0W 10. Functional Assessment Tool: 11. Recreational Drug Use: Never Drug Type: Tobacco Use: Never Smoker Tobacco Type: Amount or Packs/day: How Many Years: Alcohol Use: Yes Frequency: Quant:
--- NOTE | 2019-05-02 13:03 | HPC ---
[facility] [address] [place] [address] PAIN MANAGEMENT CONSULTATION Name: ALEJANDRINADEBRA K [facility]: [facility] [id number] Admission: 05/01/19 Attend Phys: Rebeca Smart Discharge: Date of : 67 Report #: [id number] THIS REPORT FOR: //name// CC: Rebeca Ward DATE OF SERVICE: 05/01/2019 CHIEF COMPLAINT: Neck pain and jaw pain. HISTORY OF PRESENT ILLNESS: This is a very pleasant 53-year-old female who returns to the pain clinic today for refill of her medications that she uses to help treat her ongoing right jaw pain and her cervical radiculopathy. She reports a pain score 5/10 today. She tells me that the increase of Lyrica from 300 mg to 400 mg has been helpful. She has not been able to tolerate any higher than that because she will have cognitive difficulties. She also explains that she had had her Botox increased by the amount of units and several more locations and that has been helpful as well, though her pain does significantly return before the 12 weeks or before her next Botox injections. 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 She denies any problems with constipation or daytime sleepiness from this medicine and would like refills of her Lyrica and tramadol today. ALLERGIES: PENICILLIN, SULFA, BACTRIM, and POLYSPORIN. CURRENT LIST OF MEDICATIONS: Botox, Aleve 3-4 times a week, tramadol 50 mg 2-3 times a day, progesterone 100 mg capsules daily, estradiol patch weekly, Ambien p.r.n., lisinopril 10/325 and Lyrica 200 mg b.i.d. PQRS: 1. She has osteoarthritis involving her neck. She denies any rheumatoid arthritis. 2. Height is 4 feet 11 inches, weight is 119, BMI is 24. 3. Vital signs, 122/60, pulse is 75, respirations 14, oxygen sat is 100. 4. Pain score is 5/10. 5. Denies dizziness, does not need help walking or standing, has not fallen in the last 3 months. 6. The patient is not on any blood thinners, but does take medicine for hypertension. 7. Opioid therapy is greater than [address] an opioid signed contract in the chart. Risk assessment tool low. Functional assessment is 39/70. 8. Recreational drug use, she denies. She is not a smoker and does [address] [address] PAIN MANAGEMENT CONSULTATION Name: DEBRA TINOCO Room #: [facility] [id number] Admission: 05/01/19 Attend Phys: Rebeca Smart Discharge: Date of : 67 Report #: [id number] occasionally drink alcohol. According to the prescription monitoring system, the patient is filling appropriately for her medications. She is due for those today filling in a timely fashion. PHYSICAL EXAMINATION: GENERAL: This is a well-developed, well-nourished, well-hydrated 53-year-old female who appears her stated age, placing her current pain score at 5/10. HEENT: Normocephalic, atraumatic. Extraocular eye muscles are intact. Mucous membranes are moist. She has jaw pain bilaterally, worse on the right than the left, tightness also in her temporal area on the right side. MUSCULOSKELETAL: Upper extremity strength judged to be 5/5 with muscle bulk and tone symmetrical. Tenderness over the musculature of her cervical spine, which causes pain in the lateral tilt range of motion. ASSESSMENT: 1. Cervical radiculopathy. 2. Cervical spondylosis with radiculopathy. 3. Displacement of cervical intervertebral disk with radiculopathy. 4. Myofascial pain. 5. Muscle spasms of the cervical region. 6. Chronic intractable pain. We reviewed the fact that opiate medications are being used to provide analgesia adequate to support activities of daily living, not attempting to achieve a specific pain score on the 0-10 Visual Analog Scale. The current opiate medications are providing sufficient analgesia to allow the patient to participate in activities of daily living. The patient is not exhibiting any aberrant behavior suggestive of drug diversion. The patient is not having any adverse reactions to medications. The patient is not suffering from daytime somnolence or mental acuity changes. The patient is managing opiate-induced constipation with appropriate jxqb-ota-dpjwlax agents and dietary considerations. The patient was counseled on concern for caution with operating a motor vehicle while using opiate medications. A physical exam was performed and the patient's functional status was evaluated. All patients with back pain were advised against the bed rest greater than 4 days and were advised to return to normal activities. Pain score assessment was noted and the treatment plan was reviewed with the patient. All current medications, both prescribed and OTC were reviewed and reconciled on the electronic medical record. Tobacco screening was accomplished and smoking cessation was advised when indicated. BMI was noted and diet/exercise modification was recommended for all patients following outside normal parameters. [address] [address] PAIN MANAGEMENT CONSULTATION Name: DEBRA TINOCO Room #: REG [facility] Giuliana#: [id number] Admission: 05/01/19 Attend Phys: Rebeca Smart Discharge: Date of : 67 Report #: [id number] I reviewed with the patient today their responsibilities to safeguard prescription medications, reviewed their responsibility to utilize medications only as prescribed by the physician. They are to seek and receive pain medications only from 1 physician group ( [facility]). They are to use 1 pharmacy and keep the clinic informed if they change pharmacies. Their responsibilities include making followup visits in a timely fashion and to avoid abrupt discontinuation of medication usage. Their responsibilities further include bringing their medications (bottles from the pharmacy with residual pills) to the visit for possible confirmation of pill counts and the patient understands it is their responsibility to submit to random drug screens to ensure both that the medications prescribed are present, and that no other controlled substances are present. All prescriptions provided today were generated electronically. PLAN: 1. We discussed treatment options with the patient today. The patient found the Lyrica increase beneficial in controlling more of her pain. She is able to tolerate 400 mg per day, but was unable to titrate higher without cognitive difficulties; therefore, she resumes at 400. We will write a prescription today for Lyrica 200 mg b.i.d., #60, with 5 additional refills. This is a total of 6-month supply. The patient is finding that she is able to fill this with brand name without any difficulty using a coupon which is the savings for her at this one strength as opposed to two separate medications that she had in the past. 2. Script given for tramadol, #90, 50 mg at 2 additional refills. This is a 3-month supply for this patient. 3. The patient will return in 3 months as needed for refills of her tramadol. The patient is seen in collaboration with Dr. Minor Turk today. <ELECTRONICALLY SIGNED> By: Rebeca Smart 05/02/19 1303 1402 2307 Rebeca Smart /nt
== END ==
LOC: PAIN 06:54
DX: M47.22 Other spondylosis with radiculopathy, cervical region (principal); G89.4 Chronic pain syndrome; Z88.0 Allergy status to penicillin; Z88.2 Allergy status to sulfonamides; Z88.1 Allergy status to other antibiotic agents; Z79.899 Other long term (current) drug therapy; Z79.891 Long term (current) use of opiate analgesic

== ENCOUNTER → 2019-08-14 | Outpatient (CLI) | payer BC, OTHER ==
[~2019-08-14] VITALS: Ht 149.9 cm; Wt 55.3 kg
[2019-08-14 09:42] VITALS: BP 128/79
--- NOTE | 2019-08-14 09:55 | NUR ---
Pain Clinic Assessment: 1. History of Osteoarthritis: NECK History of Rheumatoid Arthritis: DENIES 2. Height: 4 ft. 11 in. 149.9 cm. Weight: 122.0 lb. oz. 55.339 kg. Patient's BMI: 24.6 3. Vital Signs: BP: 128/79 Pulse: 78 Resp: 14 Temp: 02 Sat: 100 ECG Mon: 4. Pain Intensity: 6-7 avg 5. Fall Risk: Dizziness: N Needs help standing or walking: N Fallen in the last 3 months: N Fall risk comments: 6. Patient on Blood Thinner: None 7. History of Hypertension: Y 8. Opioid Therapy greater than 6 weeks: N Opiate Contract Signed: 9. Risk Assessment Tool Provided: 2-low 10. Functional Assessment Tool: 11. Recreational Drug Use: Never Drug Type: Tobacco Use: Never Smoker Tobacco Type: Amount or Packs/day: How Many Years: Alcohol Use: Yes Frequency: Weekly Quant: BEER OR WINE OUT TO DINNER
--- NOTE | 2019-08-15 08:21 | HPC ---
[facility] [address] [place] [address] PAIN MANAGEMENT CONSULTATION Name: DEBRA TINOCO Room #: REG [facility].#: [id number] Admission: 08/14/19 Attend Phys: Rebeca Smart Discharge: Date of : 67 Report #: [id number] THIS REPORT FOR: cc: Sue Ward MD,Sue Smart,Rebeca COBURN ~ THIS REPORT FOR: //name// CC: Rebeca Ward DATE OF SERVICE: 08/14/2019 CHIEF COMPLAINT: Neck pain and jaw pain. HISTORY OF PRESENT ILLNESS: This is a very pleasant 53-year-old female who returns to the pain clinic today for refill of her medications. She is reporting a pain score of 6-7, which is a daily average pain score for her and her bilateral jaw as well as her neck and her left shoulder pain has returned. She feels that it is mostly located in her joint presently, but sometimes does radiate into her biceps. Her pain overall is an aching, cramping, sharp pain with spasms. It is worse with not moving or after she is awakened in the morning after her jaw has not had any movement for the evening. She reports that resting and lying down and her medications are very beneficial in controlling her pain. She is reporting she is going to have invisalign treatment starting today. She is hopeful this will help with her jaw pain, changing her bite and see if this is beneficial in decreasing some of her chronic pain that she experiences. She feels that her Lyrica as well as tramadol are beneficial in controlling her pain and she would like refills today. ALLERGIES: PENICILLIN, SULFA, POLYSPORIN. CURRENT LIST OF MEDICATIONS: Lyrica 200 mg b.i.d., tramadol 50 mg t.i.d., Botox, Aleve, progesterone, estradiol, Ambien and lisinopril. PQRS: 1. She has osteoarthritic changes in her neck. Denies any rheumatoid arthritis. 2. Height is 4 feet 11 inches, weight is 122, BMI is 24. 3. Vital signs 128/79, pulse is 78, respirations 14, oxygen sat is 100. 4. Pain score is 6-7. 5. Denies dizziness, does not need help walking or standing, has not fallen in the last 3 months. 6. The patient is not on any blood thinners, [place] [address] PAIN MANAGEMENT CONSULTATION Name: DEBRA TINOCO Room #: REG [facility] Dejuan#: [id number] Admission: 08/14/19 Attend Phys: Rebeca Smart Discharge: Date of : 67 Report #: [id number] hypertension. 7. Opioid therapy is greater than 6 weeks; therefore, an opioid signed contract is on the chart. Risk assessment tool is low. Functional assessment is 34/70. 8. Recreational drug use, she denies. She is not a smoker and occasionally drinks alcohol. According to the prescription monitoring system, the patient is filling appropriately for her medications, filling them in a timely fashion. She is due to fill her medications this week. Her current morphine mEq or less than 10 per day. We will check a random drug screen on this patient today. PHYSICAL EXAMINATION: GENERAL: This is a well-developed, well-nourished, well-hydrated 53-year-old female who appears her stated age, placing her current pain score at 6-7/10. HEENT: Normocephalic, atraumatic. Extraocular eye muscles are intact. Mucous membranes are moist. She has jaw pain bilaterally today, greater on the left than the right, tightness in her temporomandibular joint area. MUSCULOSKELETAL: Tenderness in her left shoulder with movement of abduction and rotation. Upper extremity strength judged to be 5/5 in all major muscle groups. ASSESSMENT: 1. Cervical radiculopathy. 2. Cervical spondylosis with radiculopathy. 3. Displacement of cervical intervertebral disk with radiculopathy. 4. Myofascial pain. 5. Muscle spasms. 6. Chronic intractable pain. 7. Bilateral jaw pain. We reviewed the fact that opiate medications are being used to provide analgesia adequate to support activities of daily living, not attempting to achieve a specific pain score on the 0-10 Visual Analog Scale. The current opiate medications are providing sufficient analgesia to allow the patient to participate in activities of daily living. The patient is not exhibiting any aberrant behavior suggestive of drug diversion. The patient is not having any adverse reactions to medications. The patient is not suffering from daytime somnolence or mental acuity changes. The patient is managing opiate-induced constipation with appropriate aefl-bba-syfqpuj agents and dietary considerations. The patient was counseled on concern for caution with operating a motor vehicle while using opiate medications. PLAN: 1. We discussed treatment options with the patient today. The patient finds her Lyrica and tramadol are very beneficial in helping her to continue to work on a daily basis. She is able to function on her current regimen and would like refills. We will have Dr. Minor Turk send these electronically. Fareed is [address] [address] PAIN MANAGEMENT CONSULTATION Name: DEBRA TINOCO Room #: REG [facility] Zaidi#: [id number] Admission: 08/14/19 Attend Phys: Rebeca Smart Discharge: Date of : 67 Report #: [id number] not needed to fill for her until her next visit, so he will send tramadol 50 mg #90 with 2 additional refills. 2. The patient is starting invisalign treatments today. She is hopeful that this will help decrease some of her jaw clenching and work help with her overbite that causes her ongoing jaw pain. 3. The patient states that she has been having some left shoulder pain. She reports the cervical radiculopathy is slowly returning. She may find that she needs another epidural from Dr. Minor Turk, but at this time, does not wish to schedule it. She is hopeful that it will subside, but if it continues to worsen, she will call for an appointment. 4. The patient is seen in collaboration with Dr. Minor Turk. Urine drug screen was sent randomly on this patient today and he collaborated care. <ELECTRONICALLY SIGNED> By: Rebeca Smart 08/15/19 0821 [id number] [id number] Rebeca Smart /nt
== END ==
LOC: PAIN 06:48
DX: M47.22 Other spondylosis with radiculopathy, cervical region (principal); M50.10 Cervical disc disorder with radiculopathy, unspecified cervical region; M79.18 Myalgia, other site; R68.84 Jaw pain; G89.29 Other chronic pain; Z88.0 Allergy status to penicillin; Z88.2 Allergy status to sulfonamides; Z88.8 Allergy status to other drugs, medicaments and biological substances; Z79.899 Other long term (current) drug therapy

== ENCOUNTER → 2020-05-07 | Outpatient (CLI) | payer BC, OTHER ==
[~2020-05-07] VITALS: Ht 149.9 cm; Wt 55.1 kg
[~2020-05-07] MED LIST changes: +ESTRACE1 MG PO
--- NOTE | ~2020-05-07 | HPC ---
[facility] [address] [place] [address] PAIN MANAGEMENT CONSULTATION Name: DEBRA TINOCO Room #: REG [facility] M..#: [id number] Admission: 05/07/20 Attend Phys: Minor Turk DO Discharge: Date of : 67 Report #: [id number] CC: Skyler Ward DATE OF SERVICE: 05/07/2020 CHIEF COMPLAINT: Neck pain, bilateral upper extremity pain with paresthesias. HISTORY OF PRESENT ILLNESS: As you know, the patient is a very pleasant 54-year-old female returning today in followup visit to undergo next in the series of cervical epidural injections under fluoroscopic guidance. The patient reports her pain begins in the neck, radiates down both arms. She describes the pain as chronic in nature. She uses descriptors such as sharp, burning, radiating, numbness and tingling when describing symptoms. She places current pain score 6-7/10. 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 She returns today in followup visit requesting next in the series of cervical epidural injections to address cervical radiculopathy. The patient denies injury or trauma that may have led to symptom reoccurrence. ALLERGIES: PENICILLIN, SULFA, BACTRIM, POLYMYXIN B. CURRENT MEDICATIONS: Estradiol 1 mg once a day, tramadol 50 mg every 8 hours p.r.n. for pain, Lyrica 200 mg twice a day, naproxen 220 mg 3 times a day, progesterone 100 mg once a day, zolpidem 5 mg p.o. at bedtime, lisinopril 10 mg per day. SOCIAL HISTORY: The patient denies tobacco, IV or illicit drug use. Admits to occasional alcohol beverage. 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 She is unaccompanied at today's visit. IMAGING: There is no new imaging available. PHYSICAL EXAMINATION: VITAL SIGNS: Blood pressure 140/65, pulse 83, respiratory rate 14 and unlabored. The patient is 100% on room air. Height 4 feet 11 inches tall, weight 121.4 pounds, BMI calculated 24.5. GENERAL: Well-developed, well-nourished, well-hydrated 54-year-old female appearing stated age. She is placing current pain score at 6-7/10. HEENT: Normocephalic, atraumatic. Pupils equal, round and reactive. Extraocular muscles are intact. NEUROLOGIC: Speech is fluent. The patient deemed a good historian. EXTREMITIES: Show no clubbing, no cyanosis. No appreciable edema. MUSCULOSKELETAL: Upper extremity strength appears equal and symmetrical 5/5, intact to light touch from C5-T1 dermatomes. Spurling's test is equivocal. Cervical provocation testing is met with a slight increase in pain, specifically with lateral flexion and rotation of the cervical region. Muscle bulk and tone appears equal and symmetrical in the upper extremities. ASSESSMENT: 1. Cervical radiculopathy. 2. Cervical spondylosis with radiculopathy. 3. Displacement of cervical intervertebral disk with radiculopathy. PLAN: 1. The patient returns today in followup visit indicating good efficacy with previous cervical epidural injections. She reports that a cervical epidural injection provided at our last visit gave excellent benefit over 60-70% improvement in overall pain lasting for almost 2 years. She returns today in followup visit with a slow and progressive return of symptoms, no inciting injury or trauma, wishing to undergo the next in the series of epidural injections to address cervical radiculopathy. The patient has been advised of the risks and benefits of this procedure, states understood and wished to proceed. 2. No medication changes made at today's visit. The patient will continue current medical therapy as prior prescribed. 3. We will see the patient back in followup visit on an as needed basis for possible next in the series of cervical epidural injections. We are hopeful the patient will see good and prolonged benefit with this cervical epidural injection allowing her to return to all activities of daily living without significant pain interference. PROCEDURE NOTE: DESCRIPTION OF PROCEDURE: C7-T1 cervical epidural steroid injection under fluoroscopic guidance. After obtaining written consent, the patient was taken back to fluoroscopy suite, placed in prone position with separate pillows under chest and forehead to decrease cervical lordosis. Skin overlying cervical area then prepped and draped in aseptic fashion. C7-T1 cervical interspace identified by AP fluoroscopy. Skin and subcutaneous tissue overlying target site injection anesthetized with 3 mL of 1% lidocaine. A 20-gauge 3-1/2 inch Tuohy needle advanced under fluoroscopic guidance towards the epidural space using a midline approach. The epidural space identified using loss of resistance to air technique. After negative aspiration for heme or cerebrospinal fluid, 1 mL of Omnipaque injected. A cervical epidurogram was confirmed using both AP and oblique fluoroscopy. After negative aspiration for heme or cerebrospinal fluid, 5 mL of a solution containing 2 mL 40 mg per mL, 80 mg total triamcinolone along with 3 mL of lidocaine 1% injected slowly. Needle then retracted approximately half way, flushed with 1 mL of 1% lidocaine and then removed. Sterile bandage placed over injection site. No new motor deficits present in the upper extremities following procedure. The patient tolerated procedure well, carefully escorted to recovery room in stable condition. No apparent complications. After meeting discharge criteria, the patient discharged home. By: [id number] Minor Turk DO /nt
[2020-05-07 14:25] VITALS: BP 140/65
--- NOTE | 2020-05-07 14:47 | NUR ---
Pain Clinic Assessment: 1. History of Osteoarthritis: NECK History of Rheumatoid Arthritis: DENIES 2. Height: 4 ft. 11 in. 149.9 cm. Weight: 121.4 lb. oz. 55.067 kg. Patient's BMI: 24.5 3. Vital Signs: BP: 140/65 Pulse: 83 Resp: 14 Temp: 02 Sat: 100 ECG Mon: 4. Pain Intensity: 6 -7 5. Fall Risk: Dizziness: N Needs help standing or walking: N Fallen in the last 3 months: N Fall risk comments: 6. Patient on Blood Thinner: None 7. History of Hypertension: Y 8. Opioid Therapy greater than 6 weeks: Y Opiate Contract Signed: 9. Risk Assessment Tool Provided: 2-low 10. Functional Assessment Tool: 11. Recreational Drug Use: Never Drug Type: Tobacco Use: Never Smoker Tobacco Type: Amount or Packs/day: How Many Years: Alcohol Use: Yes Frequency: Weekly Quant: 2
== END | disposition home or self-care (01) ==
LOC: PAIN 06:59
PROVIDERS: ATTEND Anesthesiology Pain Medicine
DX: M50.10 Cervical disc disorder with radiculopathy, unspecified cervical region (principal); M47.22 Other spondylosis with radiculopathy, cervical region; G89.29 Other chronic pain; Z98.890 Other specified postprocedural states; Z79.899 Other long term (current) drug therapy; Z88.0 Allergy status to penicillin; Z88.8 Allergy status to other drugs, medicaments and biological substances

== ENCOUNTER → 2020-10-28 | Outpatient (CLI) | payer BC, OTHER ==
[~2020-10-28] VITALS: Ht 149.9 cm; Wt 55.0 kg
[2020-10-28 08:28] VITALS: BP 124/70
--- NOTE | 2020-10-28 08:35 | NUR ---
Pain Clinic Assessment: 1. History of Osteoarthritis: NECK History of Rheumatoid Arthritis: DENIES 2. Height: 4 ft. 11 in. 149.9 cm. Weight: 121.2 lb. oz. 54.976 kg. Patient's BMI: 24.5 3. Vital Signs: BP: 124/70 Pulse: 74 Resp: 14 Temp: 02 Sat: 100 ECG Mon: 4. Pain Intensity: 4 5. Fall Risk: Dizziness: N Needs help standing or walking: N Fallen in the last 3 months: N Fall risk comments: 6. Patient on Blood Thinner: None 7. History of Hypertension: Y 8. Opioid Therapy greater than 6 weeks: Y Opiate Contract Signed: 9. Risk Assessment Tool Provided: 2-low 10. Functional Assessment Tool: 11. Recreational Drug Use: Never Drug Type: Tobacco Use: Never Smoker Tobacco Type: Amount or Packs/day: How Many Years: Alcohol Use: Yes Frequency: Weekly Quant: 2
--- NOTE | 2020-11-04 07:49 | HPC ---
[address] [place] [address] PAIN MANAGEMENT CONSULTATION Name: DEBRA TINOCO Room #: REG [facility].#: [id number] Admission: 10/28/20 Attend Phys: Minor Turk DO Discharge: Date of : 67 Report #: [id number] THIS REPORT FOR: cc: Sue Ward MD,Minor Sierra MD, DO ~ DOC #: [id number] cc: Skyler Reis MD, Sue Turk DO DATE OF SERVICE: 10/28/2020 CHIEF COMPLAINT: Neck pain, bilateral lower extremity pain with paresthesias, left greater than the right. HISTORY OF PRESENT ILLNESS: Please note, the patient is a very pleasant 54-year-old female returning in followup visit to undergo cervical epidural injection under fluoroscopic guidance to address cervical radiculopathy. The patient is placing current pain score at 4/10. She states the pain began to reoccur about 2 months ago. She has tried conservative treatment, but this did not improve symptoms. She made today's appointment to undergo cervical epidural injection under fluoroscopic guidance. She reports previous cervical epidural injection leading to improvement in symptoms of greater than 70%. Unfortunately, her symptoms reoccurred without inciting injury or trauma. She believes that returning to work and certain activities at home may have exacerbated her symptoms. She returns today for cervical epidural injection under fluoroscopic guidance. ALLERGIES: PENICILLIN, SULFA, BACTRIM, POLYMYXIN B. CURRENT MEDICATIONS: See chart. SOCIAL HISTORY: The patient denies tobacco, IV or illicit drug use. Admits to occasional alcohol beverage. 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 IMAGING: No new imaging available. PHYSICAL EXAMINATION: VITAL SIGNS: Blood pressure 124/70, pulse 74, respiratory rate 14 and unlabored. The patient is 100% on room air, height 4 feet 11 inches tall, weight 121.2 pounds, BMI calculated 24.5. GENERAL: A well-developed, well-nourished, well-hydrated 54-year-old female appearing stated age. Pain is rated today, 4/10. HEENT: Normocephalic, atraumatic. Pupils are round. Extraocular muscles are intact. The patient is wearing a mask in compliance with COVID-19 regulations. EXTREMITIES: Show no clubbing, no cyanosis. No appreciable edema. [facility] [address] [place] [address] PAIN MANAGEMENT CONSULTATION Name: DEBRA TINOCO Room #: [facility]#: [id number] Admission: 10/28/20 Attend Phys: Minor Turk DO Discharge: Date of : 67 Report #: [id number] MUSCULOSKELETAL: Upper extremity strength is symmetrical again today 5/5, intact to light touch from C5-T1 dermatomes. Spurling's test remains equivocal. There is no palpatory tenderness over the paraspinal musculature or spinous processes of the cervical spine. Cervical provocation testing is met with increased pain and reduction in capability of lateral rotation and lateral flexion to the left. ASSESSMENT: 1. Cervical radiculopathy. 2. Cervical spondylosis with radiculopathy. 3. Displacement of cervical intervertebral disk with radiculopathy. 4. Chronic intractable pain. PLAN: 1. The patient returns today in followup visit to undergo cervical epidural injection under fluoroscopic guidance. The patient has noted excellent benefit with cervical injections in the past with 70% improvement in overall pain with the previous injection. Unfortunately, her symptoms have begun to return. She returns today in followup visit to undergo cervical epidural injection in hopes of improving pain. The patient has been advised the risks and benefits of the procedure, states she understood and wished to proceed. 2. No medication changes made at today's visit. The patient will continue current medical therapy as prior prescribed. 3. We will see the patient back in followup visit on an as needed basis for the next in a series of cervical epidural injections. We are hopeful the patient will once again see good and prolonged benefit with today's procedure. PROCEDURE NOTE DESCRIPTION OF PROCEDURE: C7-T1 cervical epidural steroid injection under fluoroscopic guidance. After obtaining written consent, the patient was taken back to fluoroscopy suite, placed in a prone position with pillow under chest and forehead to decrease cervical lordosis. Skin overlying cervical area prepped and draped in aseptic fashion. C7-T1 cervical interspace identified by AP fluoroscopy. Skin and subcutaneous tissue overlying the target site of injection was anesthetized with 3 mL of 1% lidocaine. A 20 gauge 3-1/2 inch Tuohy needle was advanced under fluoroscopic guidance towards the epidural space using a midline approach. Epidural space was identified using loss of resistance to air technique. After negative aspiration for heme or cerebrospinal fluid, 1 mL of Omnipaque injected. A cervical epidurogram was confirmed using both AP and oblique fluoroscopy. After negative aspiration for heme or cerebrospinal fluid, 5 mL of a solution containing 2 mL 40 mg per mL 80 mg total triamcinolone along with 3 mL of lidocaine, 1% injected [address] [address] PAIN MANAGEMENT CONSULTATION Name: DEBRA TINOCO Room #: REG [facility] Giuliana#: [id number] Admission: 10/28/20 Attend Phys: Minor Turk DO Discharge: Date of : 67 Report #: [id number] slowly. Needle retracted care home flushed with 1 mL of 1% lidocaine and then removed and a sterile bandage was placed over the injection site. No new motor deficits present in the upper extremities following the procedure. The patient tolerated the procedure well, carefully escorted to recovery room in stable condition. No apparent complications. After meeting discharge criteria, the patient discharged home. Minor Turk DO JEJ/PUN <ELECTRONICALLY SIGNED> By: Minor Turk DO 11/04/20 [id number] Minor Turk DO /nt
== END | disposition home or self-care (01) ==
LOC: PAIN 07:08
PROVIDERS: ATTEND Anesthesiology Pain Medicine
DX: M50.10 Cervical disc disorder with radiculopathy, unspecified cervical region (principal); M47.22 Other spondylosis with radiculopathy, cervical region; Z98.890 Other specified postprocedural states; Z79.899 Other long term (current) drug therapy; Z88.2 Allergy status to sulfonamides; Z88.8 Allergy status to other drugs, medicaments and biological substances

== ENCOUNTER → 2021-03-04 | Outpatient (CLI) | payer BC, OTHER ==
[~2021-03-04] VITALS: Ht 149.9 cm; Wt 54.2 kg
--- NOTE | ~2021-03-04 | HPC ---
[facility] [place] [address] PAIN MANAGEMENT CONSULTATION Name: DEBRA TINOCO [id number] Admission: 03/04/21 Attend Phys: Minor Turk DO Discharge: Date of : 67 Report #: [id number] THIS REPORT FOR: cc: Sue Ward MD, Tiffany MD Johnson, James E. DO ~ cc: Skyler Reis MD DATE OF SERVICE: 03/04/2021 REFERRING PHYSICIAN: Dr. Skyler Reis. CHIEF COMPLAINT: Neck pain, bilateral lower extremity pain, left greater than right. HISTORY OF PRESENT ILLNESS: As you know, the patient is a very pleasant 55-year-old female with longstanding history of cervical radiculopathy leading to bilateral upper extremity pain with paresthesias, left greater than right. She returns today in followup visit to begin the process of undergoing next in the series of cervical epidural injections under fluoroscopic guidance. The patient reports pain begins in the neck, radiates down the left arm more than the right, places current pain score 4/10. The patient denies injury or trauma that may have led to symptom reoccurrence. She has undergone cervical epidural injections in the past, the most recent giving 80% improvement in overall pain lasting for months. She returns today in followup visit to discuss the possibility of undergoing the next in the series of cervical epidural injections to address cervical radiculopathy. The patient has not had any changes in her medication management since our last visit that would preclude her from undergoing an epidural injection. ALLERGIES: PENICILLIN, SULFA, BACTRIM, POLYMYXIN B. CURRENT MEDICATIONS: Estrace 1 mg once a day, tramadol 50 mg 3 times a day, pregabalin 200 mg twice a day, naproxen 220 mg once a day, zolpidem 5 mg p.o. at bedtime, lisinopril 10 mg once a day. SOCIAL HISTORY: The patient denies tobacco, IV or illicit drug use. Admits to occasional alcohol beverage. 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 IMAGING: No new imaging available. PHYSICAL EXAMINATION: VITAL SIGNS: Blood pressure 137/82, pulse 63, respiratory rate 14 and unlabored. The patient is 100% on room air. Height 4 feet 11 inches tall, weight 119.4 pounds, BMI calculated 24.1. GENERAL: Well-developed, well-nourished, well-hydrated, 55[place] [address] PAIN MANAGEMENT CONSULTATION Name: DEBRA TINOCO Room #: REG [facility] Dejuan#: [id number] Admission: 03/04/21 Attend Phys: Minor Turk DO Discharge: Date of : 67 Report #: [id number] appearing stated age, pain is rated today 4/10. HEENT: Normocephalic, atraumatic. Pupils are equal, round and responsive. She is wearing a mask in compliance with COVID-19 regulations. EXTREMITIES: Show no clubbing, no cyanosis, and no edema. MUSCULOSKELETAL: Upper extremity strength appears symmetrical 5/5. She remains intact to light touch from C5-T1 dermatomes. Spurling's test is positive left, negative right. Cervical provocation testing including extension, rotation, lateral flexion to the left intensify pain. Negative right. Muscle bulk and tone is symmetrical in upper extremities. Deep tendon reflexes are equal and symmetrical at biceps, brachialis and triceps. ASSESSMENT: 1. Cervical radiculopathy. 2. Displacement of cervical intervertebral disk with radiculopathy. 3. Cervical spondylosis with radiculopathy. PLAN: 1. The patient returns today in followup visit to begin the authorization process to undergo a cervical epidural injection under fluoroscopic guidance. The patient is reporting pain reoccurrence that began spontaneously and has now reached to a level of 4/10. She is requesting to undergo a cervical epidural injection under fluoroscopic guidance to address cervical radicular symptoms. The patient and I discussed at length the process and treatment of cervical radiculopathy with cervical epidural injections and she is amenable to undergo the procedure again, as she has noted 80% improvement in symptoms with the previous injection. 2. We will schedule the patient back to undergo the cervical epidural injection requested. The patient will clear her schedule for the day of the procedure and following the procedure to be able to rest and relax and recover from the procedure. We will schedule the patient as early as we possibly can. 3. The patient will increase her tramadol. Currently, she is taking 50 mg up to 3 times a day. She can take one and a half to one tab and as many as 3 times a day as necessary for pain control as we await the cervical epidural injection. The patient was advised to watch for side effects with the increase in medications. 4. We will see the patient back in followup visit at her earliest convenience to undergo a cervical epidural injection under fluoroscopic guidance to address recurrent cervical radiculopathy. By: [id number] Minor Turk, DO /nt
[2021-03-04 10:27] VITALS: BP 137/82
--- NOTE | 2021-03-04 10:48 | NUR ---
Pain Clinic Assessment: 1. History of Osteoarthritis: NECK History of Rheumatoid Arthritis: DENIES 2. Height: 4 ft. 11 in. 149.9 cm. Weight: 119.4 lb. oz. 54.159 kg. Patient's BMI: 24.1 3. Vital Signs: BP: 137/82 Pulse: 63 Resp: 14 Temp: 02 Sat: 100 ECG Mon: 4. Pain Intensity: 4 5. Fall Risk: Dizziness: N Needs help standing or walking: N Fallen in the last 3 months: Y Fall risk comments: 6. Patient on Blood Thinner: None 7. History of Hypertension: Y 8. Opioid Therapy greater than 6 weeks: Y Opiate Contract Signed: 9. Risk Assessment Tool Provided: 2-low 10. Functional Assessment Tool: 11. Recreational Drug Use: Never Drug Type: Tobacco Use: Never Smoker Tobacco Type: Amount or Packs/day: How Many Years: Alcohol Use: Yes Frequency: Weekly Quant: 1-2
== END ==
LOC: PAIN 07:04
PROVIDERS: ATTEND Anesthesiology Pain Medicine
DX: M50.10 Cervical disc disorder with radiculopathy, unspecified cervical region (principal); M47.22 Other spondylosis with radiculopathy, cervical region; Z79.899 Other long term (current) drug therapy; Z79.891 Long term (current) use of opiate analgesic

== ENCOUNTER → 2021-03-10 | Outpatient (CLI) | payer BC, OTHER ==
[~2021-03-10] VITALS: Ht 149.9 cm; Wt 53.7 kg
[2021-03-10 10:18] VITALS: BP 132/81
--- NOTE | 2021-03-10 10:25 | NUR ---
Pain Clinic Assessment: 1. History of Osteoarthritis: NECK History of Rheumatoid Arthritis: DENIES 2. Height: 4 ft. 11 in. 149.9 cm. Weight: 118.4 lb. oz. 53.706 kg. Patient's BMI: 23.9 3. Vital Signs: BP: 132/81 Pulse: 79 Resp: 14 Temp: 02 Sat: 100 ECG Mon: 4. Pain Intensity: 4 5. Fall Risk: Dizziness: N Needs help standing or walking: N Fallen in the last 3 months: N Fall risk comments: 6. Patient on Blood Thinner: None 7. History of Hypertension: Y 8. Opioid Therapy greater than 6 weeks: Y Opiate Contract Signed: 9. Risk Assessment Tool Provided: 2-low 10. Functional Assessment Tool: 11. Recreational Drug Use: Never Drug Type: Tobacco Use: Never Smoker Tobacco Type: Amount or Packs/day: How Many Years: Alcohol Use: Yes Frequency: Quant:
--- NOTE | 2021-03-10 13:36 | HPC ---
[facility] [place] [address] PAIN MANAGEMENT CONSULTATION Name: DEBRA TINOCO Room #: REG [facility].#: [id number] Admission: 03/10/21 Attend Phys: Minor Turk DO Discharge: Date of : 67 Report #: [id number] THIS REPORT FOR: cc: Sue Wadr MD,Minor Sierra MD, DO ~ cc: Skyler Reis MD, Sue Ward DATE OF SERVICE: 03/10/2021 REFERRING PHYSICIAN: Dr. Skyler Reis. PRIMARY CARE PHYSICIAN: Dr. Sue Ward. CHIEF COMPLAINT: Neck pain, left upper extremity pain with paresthesias. HISTORY OF PRESENT ILLNESS: As you know, the patient is a very pleasant 55-year-old female with longstanding history of cervical radiculopathy leading to bilateral upper extremity pain, left greater than right. She has had complete resolution of her right upper extremity pain since a previous epidural injection, but unfortunately she has had a recurrence of left upper extremity pain and paresthesias. She returns today in followup visit having received authorizations to undergo cervical epidural injection under fluoroscopic guidance. The patient is also able to clear her schedule for the afternoon to be able to go home, take it easy after the procedure, which improves efficacy. She returns today in followup visit reporting a pain score of about 4/10 requesting a cervical epidural injection under fluoroscopic guidance. ALLERGIES: PENICILLIN, SULFA, BACITRACIN, ADHESIVE TAPE, AND POLYMYXIN. CURRENT MEDICATIONS: Tramadol, pregabalin, estradiol, naproxen, zolpidem, lisinopril. SOCIAL HISTORY: The patient denies tobacco, IV or illicit drug use. Admits occasional alcohol beverage. 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 IMAGING: No new imaging available. PHYSICAL EXAMINATION: VITAL SIGNS: Blood pressure 132/81, pulse 79, respiratory rate 14 and unlabored. The patient 100% on room air. Height 4 feet 11 inches tall, weight 118.4 pounds, BMI calculated 23.9. GENERAL: Well-developed, well-nourished, well-hydrated 55-year-old female appearing stated age. She is placing current pain score 4/10. HEENT: Normocephalic, atraumatic. Pupils equal, round and responsive. She is wearing a mask in compliance with COVID-[address] [address] PAIN MANAGEMENT CONSULTATION Name: DEBRA TINOCO Room #: REG [facility]#: [id number] Admission: 03/10/21 Attend Phys: Minor Turk DO Discharge: Date of : 67 Report #: [id number] EXTREMITIES: Show no clubbing, no cyanosis and no edema. MUSCULOSKELETAL: Spurling's test positive left, negative right. Upper extremity strength remains symmetrical again today 5/5. Muscle bulk and tone equal and symmetrical in upper extremities. She is intact to light touch from C5 through T1 dermatomes. ASSESSMENT: 1. Cervical radiculopathy. 2. Displacement of cervical intervertebral disk with radiculopathy. 3. Cervical spondylosis with radiculopathy. PLAN: 1. The patient returns today in followup visit to undergo cervical epidural injection under fluoroscopic guidance. She has done very well with previous cervical epidural injections and hopeful to see similar improvement today. The patient has been advised of the risks and the benefits of this procedure. These risks include but are not necessarily limited to bleeding, bruising, infection, worsening of pain, no relief of pain, also risk of temporary or permanent muscle weakness, temporary or permanent nerve damage, possible paralysis, and . The patient states she understood and wished to proceed. 2. No medication changes made at today's visit. The patient will continue current medical therapy as prior prescribed. 3. We will plan to see the patient back in followup visit on an as needed basis for the next in the series of cervical epidural injections. DESCRIPTION OF PROCEDURE: C7-T1 cervical epidural steroid injection under fluoroscopic guidance. After obtaining written consent, the patient was taken back to fluoroscopy suite, placed in prone position with separate pillows under chest and forehead to decrease cervical lordosis. Skin overlying cervical area then prepped and draped in aseptic fashion. C7-T1 cervical interspace identified by AP fluoroscopy. Skin and subcutaneous tissue overlying target site injection anesthetized with 3 mL of 1% lidocaine. A 20-gauge, 3-1/2-inch Tuohy needle advanced under fluoroscopic guidance towards the epidural space using a midline approach. Epidural space identified using loss of resistance to air technique. After negative aspiration for heme or cerebrospinal fluid, 1 mL of Omnipaque injected. A cervical epidurogram was confirmed using both AP and oblique fluoroscopy. After negative aspiration for heme or cerebrospinal fluid, 5 mL of a solution containing 2 mL 40 mg per mL 80 mg total triamcinolone along with 3 mL of lidocaine 1% injected slowly. Needle retracted senior care flushed with 1 mL of 1% lidocaine, then removed. Sterile bandage placed over injection site. No new motor deficits present in the lower extremities following procedure. [address] [address] PAIN MANAGEMENT CONSULTATION Name: DEBRA TINOCO Room #: REG [facility]#: [id number] Admission: 03/10/21 Attend Phys: Minor Turk DO Discharge: Date of : 67 Report #: [id number] The patient tolerated the procedure well, carefully escorted to recovery room in stable condition. No apparent complications. After meeting discharge criteria, the patient discharged home. <ELECTRONICALLY SIGNED> By: Minor Turk DO 03/10/21 [id number] Minor Turk DO /nt
== END | disposition home or self-care (01) ==
LOC: PAIN 09:24
PROVIDERS: ATTEND Anesthesiology Pain Medicine
DX: M50.10 Cervical disc disorder with radiculopathy, unspecified cervical region (principal); M47.22 Other spondylosis with radiculopathy, cervical region; Z98.890 Other specified postprocedural states; Z79.899 Other long term (current) drug therapy; Z88.8 Allergy status to other drugs, medicaments and biological substances; Z88.0 Allergy status to penicillin; Z88.2 Allergy status to sulfonamides